=== PATIENT | male | born 1990 | race Caucasian/White ===

== ENCOUNTER 2020-12-10 18:13 | Emergency (ER) | payer OTHER ==
[~2020-12-10 18:13] MED LIST: BACTRIM DS TAB1 EACH PO; BENADRYL 25MG C25 MG PO; IBUPROFEN600 MG PO; KEFLEX CAP 500500 MG PO; MOBIC15 MG PO; TAMIFLU75 MG PO
[2020-12-10 19:11] LABS: HEMOGLOBIN 14.3 gm/dl (14.0-17.5); RED BLOOD COUNT 5.01 M/UL (4.20-5.50); WHITE BLOOD COUNT 5.9 K/UL (4.5-11.0)
[2020-12-10] MEDS ORDERED: ZOFRAN ODT 4 MG4 MG PO (20:28)
== END 2020-12-10 20:36 | disposition home or self-care (01) ==
LOC: ER1 18:13
PROVIDERS: Emergency Medicine
DX: N28.9 Disorder of kidney and ureter, unspecified (principal); R19.7 Diarrhea, unspecified; R11.0 Nausea; F17.290 Nicotine dependence, other tobacco product, uncomplicated; Z88.0 Allergy status to penicillin
CPT/HCPCS: 80053; 81001; 83690; 85025; 96374; 96375; 99284; J2270; J2405; J7030

== ENCOUNTER 2021-01-15 21:33 | Emergency (ER) | payer OTHER ==
[~2021-01-15 21:33] MED LIST changes: +ZOFRAN ODT 4 MG4 MG PO
[2021-01-15] MEDS ORDERED: AMOXICILLIN500 M1 PO (21:55)
== END 2021-01-15 22:26 | disposition home or self-care (01) ==
LOC: ER1 21:33
DX: K08.89 Other specified disorders of teeth and supporting structures (principal); F17.290 Nicotine dependence, other tobacco product, uncomplicated
CPT/HCPCS: 96372; 99282; J1885

== ENCOUNTER 2021-02-28 22:33 | Emergency (ER) | payer OTHER ==
[~2021-02-28 22:33] MED LIST changes: +AMOXICILLIN500 M1 PO
[2021-03-01] MEDS ORDERED: Viscous lidocaine 2% TOP (01:47)
[2021-03-01] MEDS ORDERED: IBUPROFEN600 MG PO (01:47)
[2021-03-01] MEDS ORDERED: CLEOCIN HCL300 MG PO (01:47)
== END 2021-03-01 01:55 | disposition home or self-care (01) ==
LOC: ER1 22:33
DX: K02.9 Dental caries, unspecified (principal); Z88.0 Allergy status to penicillin
CPT/HCPCS: 99282